=== PATIENT | female | born 1985 | race African-American/Black ===

== ENCOUNTER 2024-12-28 12:19 | Inpatient (IN) | payer OTHER ==
[2024-12-28 13:43] VITALS: BMI 29.8
[2024-12-28] MEDS ORDERED: guaiFENesin 600 MG TABLET.ER (FP) PO PRN (14:29)
[2024-12-28] MEDS ORDERED: hydrOXYzine PAMOATE 25 MG CAPSULE (FP) PO PRN (14:29)
[2024-12-28] MEDS ORDERED: ACETAMINOPHEN 325 MG TABLET (FP) PO PRN (14:29)
[2024-12-28] MEDS ORDERED: NALOXONE (NARCAN) HCL 4 MG/0.1 ML SPRAY NS PRN (14:29)
[2024-12-28] MEDS ORDERED: BENZONATATE 200 MG CAPSULE PO PRN (14:29)
[2024-12-28] MEDS: IBUPROFEN 600 MG TABLET (FP) PO PRN (17:20)
[2024-12-28] MEDS: MELATONIN 5 MG TABLETS PO SCH (22:43)
[2024-12-28] MEDS: THIAMINE 100 MG TABLET PO SCH (22:43)
[2024-12-28] MEDS: METHOCARBAMOL 500 MG TABLET PO PRN (22:44)
[2024-12-29] MEDS: NICOTINE 14 MG/24 HOURS TOPICAL PATCH TD SCH (09:05)
[2024-12-29] MEDS: PRENATAL VITAMINS W/ FOLIC ACID TABLET (FP) PO SCH (09:05)
[2024-12-29 11:27] LABS: MCHC 31.5 g/dl (32.2-35.5); MEAN CELL VOLUME 97.6 fl (79.4-94.8); MEAN PLT VOLUME 12.4 fl (9.4-12.3); RDW 12.4 % (12.1-16.8)
[2024-12-29 11:52] LABS: GLUCOSE,RANDOM 81 mg/dL (74-106)
[2024-12-29 11:53] LABS: TOT PROT 6.1 g/dl (6.4-8.2)
[2024-12-29 11:54] LABS: CO2 23 mmol/L (21-32)
[2024-12-29 11:55] LABS: ALK PHOS 60 U/L (40-150)
[2024-12-29 11:58] LABS: CREATININE 0.73 mg/dL (0.55-1.3); SGOT/AST 26 U/L (5-34); SGPT/ALT 46 U/L (0-55)
[2024-12-31] MEDS: IBUPROFEN 400 MG TABLET (FP) PO PRN (06:22)
[2025-01-01] MEDS: LOPERAMIDE HCL 2 MG CAPSULE PO PRN (17:03)
[2025-01-08] MEDS: BENZOCAINE/MENTHOL (CHLORASEPTIC ) LOZENGE MM PRN (21:27)
[2025-01-09 06:56] VITALS: RESP 18
[2025-01-11] MEDS: MAG HYDROX/AL HYDROX/SIMETH 30 ML UNIT-DOSE CUP PO PRN (21:03)
[2025-01-13] MEDS: MAGNESIUM HYDROX 2400MG/30ML ORAL SUSPENSION 30 ML CUP PO PRN (10:21)
[2025-01-15] MEDS: VITAMINS A AND D TOPICAL OINTMENT TP PRN (12:48)
[2025-01-15] MEDS: NICOTINE POLACRILEX 2 MG GUM BUC PRN (18:17)
[2025-01-17] MEDS: POLYETHYLENE GLYCOL (HEALTHYLAX) 3350 17 GM PACKET PO PRN (17:30)
[2025-01-22 07:15] VITALS: TEMP 97.8
[2025-01-23 07:02] VITALS: BP 128/75; PULSE 82
== END 2025-01-23 09:55 | disposition home or self-care (01) | DRG 895 ==
LOC: SUATTDRO 12:19 → YASAS 12:19 → Y3NR 15:51 → Y5N 12-29 12:49
PROVIDERS: ADMIT Family Medicine; ATTEND Psychiatry & Neurology Pain Medicine
PROC: HZ42ZZZ Group Counseling for Substance Abuse Treatment, Cognitive-Behavioral (ICD-10-PCS; principal; 2024-12-28)
DX: F14.20 Cocaine dependence, uncomplicated (principal); F17.210 Nicotine dependence, cigarettes, uncomplicated; F39 Unspecified mood [affective] disorder
CPT/HCPCS: 36415; 80053; 80307; 85027; 86780; 93005; 93010